=== PATIENT | female | born 2005 | race Caucasian/White ===

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

== ENCOUNTER 2025-01-01 06:14 | Emergency (ER) | payer OTHER, SELFPAY ==
--- NOTE | ~2025-01-01 | US_ITS ---
EXAMINATION: US OB <=14 wk fetus w TV, 01/01/2025 8:10 CDT HISTORY: ? complete Comparison: None Technique: Liang-scale and color Doppler images were obtained FINDINGS: Uterus anteverted 7.1 x 3.6 x 5.1 cm. Endometrium demonstrates a heterogeneous appearance, there is no intrauterine gestational sac identified, the endometrium measures 5 mm. Right ovary 1 x 2.8 x 1.1 cm, left ovary 1.7 x 2.2 x 1.2 cm. No adnexal mass, normal flow No free fluid in the pelvis IMPRESSION: No intrauterine identified. No retained products of conception Reviewed, dictated and finalized at location P. IMPRESSION: No intrauterine identified. No retained products of britt ption
--- OUTSIDE RECORDS SUMMARY | 2025-01-01 06:16 | XMS_ITS | Encounter Summary ---
Author Organization [facility] Address [address] [place] [address] Care Team Providers Care Marklogic Developer Name Role Phone Araseli Galindo MD Primary Care Provider [phone] None, Provider Primary Care Provider Lauraa jennifer Encounter Details Date Type Department Care Team (Late st Contact Info) Description 06/21/2017 Hosp Visit [facility] [place] [address] [place] [address] Yesenia Sarah, [place] [address] Social History Tobacco Use Types Packs/Day Years [...] documented as of this encounter Care Teams Marklogic Developer Relationship Specialty Start Date End Date Araseli Galindo MD [address] [place] [address] [place] [address] PCP - General PEDIATRICS 04/13/17 01/08/24 None, Provider, MD PCP - General UNKNOWN PHYSICIAN SPECIALTY 01/09/24 documented as of this encounter
--- OUTSIDE RECORDS SUMMARY | 2025-01-01 06:16 | XMS_ITS | Encounter Summary ---
Author Organization [facility] Address [address] [place] [address] Care Team Providers Care Canine Service Instructor Trainer Name Role Phone Araseli Galindo MD Primary Care Provider [phone] None, Provider Primary Care Provider Lauraa jennifer Encounter Details Date Type Department Care Team (Late st Contact Info) Description 05/19/2017 Hosp Visit [facility]patient [place] [address] [place] [address] Yesenia Sarah, [place] [address] Social History Tobacco Use Types Packs/Day Years [...] documented as of this encounter Care Teams Canine Service Instructor Trainer Relationship Specialty Start Date End Date Araseli Galindo MD [address] [place] [address] [place] [address] PCP - General PEDIATRICS 04/13/17 01/08/24 None, Provider, MD PCP - General UNKNOWN PHYSICIAN SPECIALTY 01/09/24 documented as of this encounter
--- OUTSIDE RECORDS SUMMARY | 2025-01-01 06:16 | XMS_ITS | Encounter Summary ---
Author Organization [facility] Address [address] [place] [address] Care Team Providers Care Sr. Consultant Name Role Phone Araseli Galindo MD Primary Care Provider [phone] None, Provider Primary Care Provider Lauraa jennifer Encounter Details Date Type Department Care Team (Late st Contact Info) Description 07/15/2017 Hosp Visit [facility] Outpatient [place] [address] [place] [address] Rosio Tyson, [place] [address] Social History Tobacco Use Types Packs/Day Years [...] documented as of this encounter Care Teams Sr. Consultant Relationship Specialty [place] [address] [place] [address] [place] [address] PCP - General PEDIATRICS 04/13/17 01/08/24 None, Provider, MD PCP - General UNKNOWN PHYSICIAN SPECIALTY 01/09/24 documented as of this encounter
--- OUTSIDE RECORDS SUMMARY | 2025-01-01 06:16 | XMS_ITS | Encounter Summary ---
Author Organization [facility] Address [address] [place] [address] Care Team Providers Care Supervisor Payroll Name Role Phone Araseli Galindo MD Primary Care Provider [phone] None, Provider Primary Care Provider Lauraa jennifer Encounter Details Date Type Department Care Team (Late st Contact Info) Description 05/19/2017 Hosp Visit [facility]patient [place] [address] Rosio Tyson, [place] [address] Social History Tobacco Use Types Packs/Day Years [...] as of this encounter Care Teams Supervisor Payroll Relationship Specialty Start [place] [address] [place] [address] [place] [address] PCP - General PEDIATRICS 04/13/17 01/08/24 None, Provider, MD PCP - General UNKNOWN PHYSICIAN SPECIALTY 01/09/24 documented as of this encounter
--- OUTSIDE RECORDS SUMMARY | 2025-01-01 06:16 | XMS_ITS | Clinical Summary ---
Author Organization [facility] Address [address] [place] [address] Care Team Providers Care Commercial Parts Professional Name Role Phone Unknown, Provider Primary Care Provider Unavaila ble Source Comments [facility],non-owned Affiliates and Associated Physician Practices is amultiple site organization consisting of ambulatory clinics and hospital sitesin [place], [place], [place] and [place]. This disclosure is being madepursuant to the Care Everywhere program and may not contain all information available regarding this patient. Last updated 17.[facility] Allergies Active Allergy Reactions Criticality Noted Date [...] 24 hours. 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 01/27 Assessment & Plan (01/28/2020 9:00 AM SOCIAL SCIENCE PROFESSOR): ASSESSMENT: doing well PLAN: arch supports Iliotibial band syndrome of right side 0 Assessment & Plan (01/28/2020 9:01 AM SOCIAL SCIENCE PROFESSOR): PLAN: physical therapy History of bilateral femoral [...] needed Assessment & Plan (01/28/2020 8:59 AM SOCIAL SCIENCE PROFESSOR): ASSESSMENT: doing well PLAN: observation Warts 11/19/2011 Overview (11/19/2011): Onset 2009; lesions on palmar and dorsal aspect including periungual; failed OTC zoe acid and in office cryo at PCP - met with resistance DCP 2% - applied to left 5th MCP Estimated Date of Delivery Comme nts Yes 07/25/2025 Based on last me nstrual period of 10/18/2024 Encounters Date Type Department Care Team Description 12/12/2024 9:49 AM CDT - 12/12/2024 10:42 AM CDT Emergency ER at [facility] [address] [place] [address] Discharge Disposition: Left Against Medical Advice/Discontinued Care 11/29/2024 Telephone [facility] [address] [place] [address] Devante Portillo MD Hospital Admission 11/28/2024 10:00 AM CDT - 11/28/2024 11:10 AM CDT Emergency [facility] [address] [place] [id number] Carlin Kevin, at early stage (HCC) Discharge Disposition: Home or Self Care 11/28/2024 Travel from Last 3 Months Immunizations Immunization Administration Dates Next Due DTAP HIB IPV 03/12/2010 DTaP VACCINE IM (6wk-6yrs) 08/26/2006,,2005,05/12 HEP A PEDS 2 DOSE 04/03/2007,06/13/2006 HEP B VACCINE, PED/ADOL 2005,06/15,2005,03/15 HIB VACCINE 2006, 6,2005,05/12 HIB-PRP-T 4 DOSE 2006,2005 Human Papilloma Virus Nineva lent Vaccine 05/09/2017,01/04/2017,11/02/2016 INFLUENZA A [id number] VACCINE 02/18/2009 INFLUENZA VACCINE 11/16/2012, 2,03/12/2010,02/18,03/18/2008,01/22/2008,04/03/2007 ,05/04/2006,2006 [...] drink = 0.6 oz pur e alcohol) Estimated Date of Delivery Comme nts Yes 07/25/2025 Based on last me nstrual period of 10/18/2024 Sex and Gender Information Value Date Recorded Sex Assigned at Not on file Legal Sex Female 5:44 AM SOCIAL SCIENCE PROFESSOR Gender Identity Not on file Sexual Orientation [...] Info) Description 01/02/2025 1:00 PM CDT [facility]ointment [facility] [address] [place] [id number] Ashanti Simpson MD [facility] [phone] 01/02/2025 1:45 PM CDT Hospital Encounter [facility] [address] [place] [address] Ashanti Simpson MD [facility] [address] [phone] Health Maintenance Due Date Last Done Comments HIV SCREENING 2020 CHLAMYDIA/GONORRHEA SCREENING 2021 MENINGOCOCCAL (Group B) VACCINE SHARED DECISION-MAKING (1 of 2 - Standard) 2021 HEPATITIS C SCREENING 03/10/2023 DEPRESSION SCREENING 03/28/2024 COVID-19 VACCINE ( season) 2024 INFLUENZA VACCINE (#1) 2024 7, 12/17/2013, 11/16/2012, Additional history exists OB-TDAP CURRENT 04/25/2025 11/02/2016 DTAP/TDAP/TD VACCINES (7 - Td or Tdap) [...] topic HPV VACCINE Completed 05/09/2017, 12/26, 11/02/2016 Respiratory Syncytial Virus (RSV) Vaccine Pt: or over 60 yrs (No Doses Required) Completed Medical Devices Explanted Type Area Strategic Sourcing Manager Device Identifier Shelf Expiration Date Model / Serial / Lot Pin Hlf 35mm 5mm Jtx Lng Ti Ntrd Extfix Implanted:Qty: 2 Explanted:Qty: 2 on 03/15/2017 at [facility] [employer] [id number] / / Pin Hlf 40mm 5mm Jtx Lng Ti Ntrd Extfix Explanted:Qty: 1 on 03/15/2017 at [facility] [employer] [id number] / / Gw Orth 3.2mm Thrd Pedinail Explanted:Qty: 2 on 03/15/2017 by Sudhir Marie MD at [facility] [employer] 001 / / Nail 9mm 34cm Im Fem Lt Pedinail Ped Implanted:Qty: 1 on 03/15/2017 by Sudhir Marie MD at [facility] Explanted:Qty: 1 on 09/22/2017 at [facility] Left: Leg [employer] -094 / / Nail 9mm 34cm Im Fem Rt Pedinail Ped Implanted:Qty: 1 on 03/15/2017 by Sudhir Marie MD at [facility] Explanted:Qty: 1 on 09/22/2017 at [facility] Right: Leg [employer] -[id number] / / Screw 4.5mm 50mm Fem Lck Pedinail Bone Implanted:Qty: 2 on 03/15/2017 by Sudhir Marie MD at [facility] Explanted:Qty: 2 on 09/22/2017 at [facility] [employer] -[id number] / / Screw 4.5mm 28mm Fem Lck Pedinail Bone Implanted:Qty: 1 on 03/15/2017 by Sudhir Marie MD at [facility] Explanted:Qty: 1 on 09/22/2017 at [facility] [employer] -[id number] / / Screw 4.5mm 30mm Fem Lck Pedinail Bone Implanted:Qty: 1 on 03/15/2017 by Sudhir Marie MD at [facility] Explanted:Qty: 1 on 09/22/2017 at [facility] [employer] -[id number] / / Procedures Procedure Name Priority Date/Time Associated Diagnosis Comments HCG BETA BLOOD QUANTITATIVE STAT 11/28/2024 10:15 AM CDT from Last 3 Months Results * HCG BETA BLOOD QUANTITATIVE (11/28/2024 10:15 AM CDT) Beta-hCG Total Quantitative 1,896 mIU/mL 11/28/2024 10:52 AM CDT [facility] Comment: HCG Numeric Result [...] PA-C LAB - CHEMISTRY ORDERABLES Final Result [facility] [address] [place] [address], [place] [phone] from Last 3 Months Insurance [facility] Member Subscriber Plan / Payer (Ef fective 2013-Present) Name:Lisa Solis Relation to Subscriber:Self Name:Lisa Solis Payer ID:[id number] (NAIC) Group ID:Not on file Type:Medicaid Managed Care Address: ATTN CLAIMS DEPARTMENT [address] [place] [id number] Advance Directives * Full Code (Latest Code Status on File) Date Activated Date Inactivated Comments 03/15/2017 1:14 PM 03/16/2017 5:56 PM Care Teams Commercial Parts Professional Relationship Specialty Start Date End Date Unknown, Provider PCP - General 11/02/23
--- OUTSIDE RECORDS SUMMARY | 2025-01-01 06:16 | XMS_ITS | Encounter Summary ---
Author Organization [facility] Address [address] [place] [address] Care Team Providers Care Financial Analysis Advisor Name Role Phone Araseli Galindo MD Primary Care Provider [phone] Myra Costello Primary Care Provider [phone] Mari Foley MD Primary Care Provider [phone] Unknown, Provider Primary Care Provider Unavaila ble Encounter Details Date Type Department Care Team (Late st Contact Info) Description 03/08/2014 Telephone [facility] Pediatrics - Orthopedics [address] [place] [address] Noemi Serrano LCSW Social History Tobacco Use Types Packs/Day Years Used Date Smoking Tobacco: Never Assessed Comments Unknown Sex and Gender Information Value Date Recorded Sex Assigned at Not on file Legal Sex Female 5:44 AM REGIONAL HR MANAGER Gender Identity Not on file Sexual Orientation Not on file documented as of this encounter Plan of Treatment Upcoming Encounters Date Type Department Care Team (Late st Contact Info) Description 01/02/2025 1:00 PM CDT Appointment formerly [facility] [address] [place] [phone] Ashanti Simpson MD [address] [phone] 01/02/2025 1:45 PM CDT Hospital Encounter formerly [facility] [address] [place] [address] Ashanti Simpson MD [address] [phone] documented as of this encounter Visit Diagnoses Not on filedocumented in this encounter Care Teams Financial Analysis Advisor Relationship Specialty Start Date End Date Araseli Galindo MD PCP - General Pediatrics 10/06/11 06/01/18 Myra Costello APRN-MEDICAL AND HEALTH SERVICES MANAGER [address] [place] [address] PCP - General Allergy and Immunology 06/02/18 1 Mari Foley MD [address] [place] [address] PCP - General Pediatrics 12/22/20 01/05/22 Unknown, Provider PCP - General 11/02/23 documented as of this encounter
[2025-01-01 06:31] VITALS: BP 127/81; PULSE 113; RESP 20; TEMP 36.6; O2SAT 100
[2025-01-01 07:15] LABS: Hematocrit 43.2 % (37.0-47.0); Hemoglobin 14.3 g/dL (12.0-15.0); Immature Granulocyte Percent A 0.3 % (0-0.5); Lymphocytes Absolute Auto 0.88 K/mm3 (0.9-3.2); Mean Corpuscular HGB Conc 33.1 g/dl (32-36); Mean Corpuscular Hemoglobin 30.2 pg (26-34); Mean Corpuscular Volume 91.1 fl (80-100); Nucleated Red Blood Cells Absolute Auto 0.000 K/mm3 (0.0-0.012); Nucleated Red Blood Cells Perc 0.0 % (0.0-0.2); Platelet Count Result 246 k/mm3 (150-375); Red Blood Count 4.74 M/mm3 (4.2-5.4); White Blood Count 14.4 K/mm3 (4.5-10.0)
[2025-01-01] MEDS: MORPHINE SULFATE (*CRX) 2 MG/ML INJ (07:24)
[2025-01-01 07:28] LABS: Alanine Aminotransferase 17 U/L (6-35); Albumin Level 4.3 g/dL (3.7-5.6); Alkaline Phosphatase 105 U/L (45-116); Anion Gap 12 mmol/L (4-12); Aspartate Amino Transferase 27 U/L (14-36); Bilirubin,Total 0.6 mg/dL (0.2-1.3); Blood Urea Nitrogen 5 mg/dL (8-21); Calcium 9.2 mg/dL (8.9-10.7); Carbon Dioxide 20 mmol/L (22-30); Chloride 105 mmol/L (98-107); Estimated CRCL calculation 104 ml/min; Estimated Glomerular Filt Rate > 60; Glucose 105 mg/dL (65-110); Potassium 3.5 mmol/L (3.4-5.0); Sodium 137 mmol/L (134-143); Total Protein 8.0 g/dL (6.3-8.6)
[2025-01-01 07:30] LABS: INR 0.9; Prothrombin Time 12.6 Seconds (11.1-14.7)
[2025-01-01 07:31] LABS: Partial Thromboplastin Time 29.6 Seconds (22.3-36.8)
[2025-01-01] MEDS: KETOROLAC 30 MG/ML VIAL (*BKC) IV PUSH (07:36)
[2025-01-01] MEDS: LACTATED RINGERS 1,000 ML 999 ML IV CONT (07:36)
[2025-01-01 07:44] LABS: Beta HCG Quantitative 109.61 mIU/ML
[2025-01-01 07:58] VITALS: PULSE 99; RESP 18; O2SAT 100
--- NOTE | 2025-01-01 09:45 | ED_ITS ---
HPI - Female Genitourinary General Chief complaint: Vaginal Bleeding Stated complaint: body pain, miscarriage Time Seen by Provider: 01/01/25 06:59 Source: patient Mode of arrival: ambulatory Limitations: no limitations History of Present Illness HPI Narrative: 19-year-old 2 para 0 here with a complains of having heavy vaginal bleeding, lower abdominal cramping this started few days ago. Patient states that she passed gestational sac 2 days ago still continues to have heavy bleeding. She states on the day 1 she soaked 5 diapers. Denies being lightheaded or dizzy. No history of nausea vomiting or fever. She states that she is scheduled to see Dr. Carney in this morning at 9:30 a.m. Pertinent past history: prior miscarriages Onset (ago): day(s) (4) Severity: moderate Quality of pain: cramping Consistency: constant Vaginal bleeding: moderate Exacerbating factors: none Relieving factors: none Related Data Allergies Allergy/AdvReac Type Severity Reaction Status Date / Time amoxicillin Allergy Unknown yeast Verified 12/07/24 09:55 infection clavulanic acid Allergy Unknown yeast Verified 12/07/24 09:55 infection Review of Systems 2 Review of Systems: All systems reviewed & are unremarkable except as noted in HPI and below Constitutional: Constitutional: Reports no additional constitutional complaints Eyes: Eyes: Reports no additional eye complaints ENT: Reports system reviewed and no additional complaints, except as documented Cardiovascular: Cardiovascular: Reports no additional cardiovascular complaints Respiratory: Respiratory: Reports no additional respiratory complaints Gastrointestinal: Gastrointestinal: Reports as per HPI Genitourinary: Genitourinary: Reports as per HPI Musculoskeletal: Musculoskeletal: Reports no additional musculoskeletal complaints Integumentary/Breasts: Skin/Breast: Reports system reviewed and no additional complaints, except as docu PMFSH Past Medical History Medical History Seizure Vaginal discharge Surveillance for Depo-Provera contraception Initiation of Depo Provera No significant past medical history Surgical History Surgical History No significant past surgical history Social History Social History Smoking status: Never smoker Alcohol intake: never Substance use: never Substance use type: does not use Lack of Transportation: No Lack of Food: Never True Current Housing: I Have Housing Concerned About Future Housing: No Difficulty Paying Gas/Electric Bills: No Difficulty Paying for Meds: No Currently Unemployed: No Education: High School Diploma/GED Difficulty w/ Childcare or Family Care: No Living arrangements: with family Occupation/Education: student 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 HEAD: Normocephalic, atraumatic. EYES: PERRLA and EOMI. ENT: Nares clear, no rhinorrhea or epistaxis. Mucous membranes moist. NECK: Supple. CHEST: Clear to auscultation. No respiratory distress. HEART: Regular rate and rhythm. No murmur heard. Normal peripheral pulses. ABDOMEN: Soft, nontender, nondistended, normal active bowel sounds. EXTREMITIES: Normal range of motion. No edema. SKIN: Warm, dry, no rash. NEURO: No focal deficits. Alert and oriented x3. PSYCH: Normal mood and affect. Course Course Emergency Course: Patient was given IV morphine and Toradol for pain control did obtain lab work which seemed to be unremarkable her repeat ultrasound shows no intra uterine of products of gestation. I did discuss with the or OBGYN will follow up in office. Patient feels comfortable going home. Vital Signs Vital signs: Vital Signs Temperature 36.6 C 01/01/25 06:31 Pulse Rate 113 H 01/01/25 06:31 Respiratory Rate 20 01/01/25 06:31 Blood Pressure 127/81 01/01/25 06:31 Pulse Oximetry 100 01/01/25 06:31 Temperature 36.6 C 01/01/25 06:31 Pulse Rate 99 01/01/25 07:58 Respiratory Rate 18 01/01/25 07:58 Blood Pressure 127/81 01/01/25 06:31 Pulse Oximetry 100 01/01/25 07:58 MDM - Female Genitourinary Lab Data Attestation: I reviewed the patient's lab results. 01/01/25 07:00 01/01/25 07:00 Labs: Lab Results 01/01/25 Range/Units 07:00 WBC 14.4 H (4.5-10.0) K/mm3 RBC 4.74 (4.2-5.4) M/mm3 Hgb 14.3 (12.0-15.0) g/dL Hct 43.2 (37.0-47.0) % MCV 91.1 (80-100) fl MCH 30.2 (26-34) pg MCHC 33.1 (32-36) g/dl RDW 12.8 (11.5-14.5) % Plt Count 246 (150-375) k/mm3 MPV 10.3 (7.4-10.4) fl Immature Gran % (Auto) 0.3 (0-0.5) % Neut % (Auto) 88.0 H (45.5-73.1) % Lymph % (Auto) 6.1 L (18.3-44.2) % [place] % (Auto) 5.3 (2.6-8.5) % Eos % (Auto) 0.1 (0-4.4) % Baso % (Auto) 0.2 (0.2-1.2) % Lymph # (Auto) 0.88 L (0.9-3.2) K/mm3 [place] # (Auto) 0.8 H (0.1-0.6) K/mm3 Eos # (Auto) 0.0 (0-0.3) K/mm3 Baso # (Auto) 0.0 (0.0-0.1) K/mm3 Abs Immat Gran (auto) 0.05 H (0.00-0.031) K/mm3 Absolute Neuts (auto) 12.7 H (1.3-6.7) K/mm3 Absolute Nucleated RBC 0.000 (0.0-0.012) K/mm3 Nucleated RBC % 0.0 (0.0-0.2) % PT 12.6 (11.1-14.7) Seconds INR 0.9 APTT 29.6 (22.3-36.8) Seconds Sodium 137 (134-143) mmol/L Potassium 3.5 (3.4-5.0) mmol/L Chloride 105 (98-107) mmol/L Carbon Dioxide 20 L (22-30) mmol/L Anion Gap 12 (4-12) mmol/L BUN 5 L (8-21) mg/dL Creatinine 0.73 (0.7-1.0) mg/dL Estim Creat Clear Calc 104 ml/min Estimated GFR > 60 (59 - ) Glucose 105 (65-110) mg/dL Calcium 9.2 (8.9-10.7) mg/dL Total Bilirubin 0.6 (0.2-1.3) mg/dL AST 27 (14-36) U/L ALT 17 (6-35) U/L Alkaline Phosphatase 105 (45-116) U/L Total Protein 8.0 (6.3-8.6) g/dL Albumin 4.3 (3.7-5.6) g/dL Beta HCG, Quant 109.61 mIU/ML Blood Type O Positive Antibody Screen Negative Doses of RhIg Required 0 Imaging Data Radiologist's impression: ITS Impressions Obstetrics Ultrasound 01/01/25 08:54 IMPRESSION: No intrauterine identified. No retained products of conception Discharge Plan Discharge Clinical Impression: Complete Patient Disposition: Home Condition: Stable Instructions: Miscarriage (ED) Additional Instructions: drink more fluids , follow with your OB doctor Patient Language: Lithuanian Prescriptions: New ibuprofen 600 mg tablet 600 mg PO Q6H PRN (Reason: pain) Qty: 30 0RF No Action valacyclovir 1 gram tablet 1,000 mg PO Q12H Qty: 14 0RF levetiracetam 500 mg tablet 500 mg PO BID Qty: 60 0RF nitrofurantoin monohyd/m-cryst [Macrobid] 100 mg capsule 100 mg PO Q12H 5 Days Qty: 10 0RF Rx Instructions: must administer with a meal/food Follow-up/Referrals: UNKNOWN,DOCTOR [Primary Care Provider] Ilir Carney MD [Physician, GRANTS AND CONTRACTS ASSISTANT] Time of Disposition: 09:49
[2025-01-01 10:48] VITALS: BP 121/68; PULSE 70; RESP 18; O2SAT 100
== END 2025-01-01 09:58 | disposition home or self-care (01) ==
PROVIDERS: Emergency Medicine; Emergency Provider Family Medicine
DX: O03.9 Complete or unspecified spontaneous abortion without complication (principal)
CPT/HCPCS: 36415; 76801; 76817; 80053; 84702; 85025; 85461; 85610; 85730; 86850; 86900; 86901; 96361; 96374; 96375; 99284; J1885; J2270; J7120

== ENCOUNTER 2025-01-06 00:11 | Emergency (ER) | payer OTHER, SELFPAY ==
[2025-01-06] VITALS (17 sets, daily range): BP systolic 108–114; BP diastolic 63–86; PULSE 60–90; RESP 10–25; TEMP 37.5; O2SAT 98–100
--- NOTE | ~2025-01-06 | CT_ITS ---
CT abdomen pelvis w con Clinical History: AP/N/V . Comparison: None Technique: Axial images lung bases to symphysis pubis 100 mL Omnipaque 350 Coronal, sagittal reformats CT images acquired with automatic exposure control for dose reduction DLP: 320 mGy-cm Findings: Lung bases: Small left pleural effusion. Visualized heart and pericardium: Unremarkable. Liver: Enlarged. Steatosis. Gallbladder: Unremarkable. Spleen: Enlarged. Pancreas: Unremarkable. Adrenal glands: Unremarkable. Kidneys: Right kidney- No hydronephrosis. No renal stones. Possible striated nephrogram. Left kidney- No hydronephrosis. No renal stones. Striated nephrogram. Distal esophagus/stomach: Unremarkable. Small bowel loops: Dilated loops of central abdomen with air-fluid levels. Colon: Normal caliber and wall thickness. Normal RLQ appendix. Nodes: No enlarged nodes. Peritoneum: No ascites. No free air. Urinary bladder: Unremarkable. Uterus: Unremarkable. Adnexa: No masses. Bones: No acute bony abnormality. Soft tissues: Unremarkable. Aorta: No aneurysm or dissection. IVC: Unremarkable. Main portal vein/SMV/splenic vein: Patent. IMPRESSION: 1. Mild enteritis, but early small bowel obstruction not excluded. 2. Worrisome for left kidney pyelonephritis. Less severe right side also possible. Alternatively, contrast timing. 3. Small left pleural effusion. 4. Hepatosplenomegaly. Reviewed, dictated and finalized at location R. IMPRESSION: 1. Mild enteritis, but early small bowel obstruction not excluded. 2. Worrisome for left kidney pyelonephritis. Less severe right side also possi ble. Alternatively, contrast timing. 3. Small left pleural effusion. 4. Hepatosplenomegaly.
[2025-01-06 01:01] LABS: Hematocrit 36.8 % (37.0-47.0); Hemoglobin 12.8 g/dL (12.0-15.0); Immature Granulocyte Percent A 0.5 % (0-0.5); Lymphocytes Absolute Auto 0.84 K/mm3 (0.9-3.2); Mean Corpuscular HGB Conc 34.8 g/dl (32-36); Mean Corpuscular Hemoglobin 29.9 pg (26-34); Mean Corpuscular Volume 86.0 fl (80-100); Nucleated Red Blood Cells Absolute Auto 0.000 K/mm3 (0.0-0.012); Nucleated Red Blood Cells Perc 0.0 % (0.0-0.2); Platelet Count Result 284 k/mm3 (150-375); Red Blood Count 4.28 M/mm3 (4.2-5.4); White Blood Count 18.3 K/mm3 (4.5-10.0)
[2025-01-06 01:04] LABS: BEDSIDEPREGUCG Positive (Negative)
[2025-01-06 01:07] LABS: Add Urine Microscopic? YES; Appearance Urine Cloudy (Clear); Glucose Urine UA Negative (Negative); Leukocyte Esterase Ur 2+ LEU/UL (Negative); Nitrate Urine Positive (Negative); Non Pathogenic Casts 0-2; Specific Grav Ur 1.013 (1.001-1.035)
--- NOTE | 2025-01-06 01:07 | ED.GENADULT ---
HPI - General Adult General Chief complaint: Abdominal Pain Stated complaint: VOMITING/ABDOMINAL PAIN Time Seen by Provider: 01/06/25 00:57 Source: patient and family Mode of arrival: ambulatory Limitations: no limitations History of Present Illness HPI narrative: Patient is a 19-year-old female presents to the emergency department with multiple complaints. Patient notes that she feels pain all over her body ever since she had a miscarriage which was 1.5 weeks ago, passed and anteriorly, had an ultrasound done about 1 week ago, has told that there was no sac anymore but still some retained products and was seen here about 5 days ago was told that the ultrasound looked good. Patient notes that she still passing intermittently some clots of blood though much decreased and some malodorous discharge and she feels like her pain allover her body is secondary to her arthritis but does admit to persistent pain in her suprapubic region with a miscarriage as seems to be fine going away. Patient admits to nausea and vomiting without any ability to keep anything down over the past 1 week. Patient denies any runny nose, congestion, cough, difficulty breathing, chest pain, diarrhea. Patient denies any known fevers. Patient notes that she was supposed to follow up with [facility] here on but had to reschedule the appointment. Patient admits to urinary frequency and urgency but denies dysuria. Patient reports this was her 3rd misscarriage. Related Data Allergies Allergy/AdvReac Type Severity Reaction Status Date / Time amoxicillin Allergy Unknown yeast Verified 01/06/25 00:27 infection clavulanic acid Allergy Unknown yeast Verified 01/06/25 00:27 infection Review of Systems Review of Systems: A 10 system review of systems was completed on the patient and is negative except for what is stated in the HPI. Nursing and ancillary documentation was reviewed. [facility] Past Medical History Medical History Seizure Vaginal discharge Surveillance for Depo-Provera contraception Initiation of Depo Provera No significant past medical history Surgical History Surgical History No significant past surgical history Social History Social History Smoking status: Never smoker Alcohol intake: never Substance use: never Substance use type: does not use Lack of Transportation: No Lack of Food: Never True Current Housing: I Have Housing Concerned About Future Housing: No Difficulty Paying Gas/Electric Bills: No Difficulty Paying for Meds: No Currently Unemployed: No Education: High School Diploma/GED Difficulty w/ Childcare or Family Care: No Living arrangements: with family Occupation/Education: student 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 Well nourished. HENMT: Head is normocephalic and atraumatic. Dry mucous membranes. No posterior oropharynx erythema. EYES: No scleral icterus. No conjunctival injection or pallor. PERRL. NECK: No meningeal signs. RESP: Able to speak in full sentences. Normal respiratory effort. CTAB. CARDIO: Regular rate. Regular rhythm. 2+ DP and radial pulses bilaterally. GI: Nondistended. Mild tenderness to palpation in the suprapubic region, no rebound or guarding or rigidity. Soft. : Mild left CVA tenderness to palpation. SKIN: No rashes or lesions noted on exposed skin. NEURO: Oriented x3. Moves all extremities. EXTREM/MSK/BACK: No pedal edema. PSYCH: Normal affect. Course Vital Signs Vital signs: Vital Signs Temperature 99.5 F 01/06/25 00:20 Pulse Rate 87 01/06/25 00:20 Respiratory Rate 16 01/06/25 00:20 Blood Pressure 108/65 01/06/25 00:20 Pulse Oximetry 100 01/06/25 00:20 Oxygen Delivery Room Air 01/06/25 00:20 Temperature 99.5 F 01/06/25 00:20 Pulse Rate 60 01/06/25 03:45 Respiratory Rate 14 01/06/25 03:45 Blood Pressure 114/69 01/06/25 03:35 Pulse Oximetry 100 01/06/25 03:45 Oxygen Delivery Room Air 01/06/25 00:20 Medical Decision Making [facility] Narrative Medical decision making narrative: Patient presents with the above complaint. Initial vitals are remarkable for no significant abnormalities. Physical examination as noted above. Differential diagnosis includes was not limited to: UTI, metabolic derangement, electrolyte derangement, gastritis, retained products of conception, endometritis, pelvic inflammatory disease, , viral syndrome. Plan discussed: Laboratory analysis, IV fluids, Zofran, morphine, continues cardiac monitoring, continuous pulse oximetry, review medical records, software security architect consultation. Patient had a ultrasound done on 01/01/2025 revealing no intrauterine identified. No retained products of conception. Endometrium demonstrated a heterogenous appearance. CBC reveals a white blood cell count of 18.3. Comprehensive metabolic panel reveals a potassium of 2.7, glucose of 150, AST of 62, ALT of 101, alkaline phosphatase of 158. Lipase is 55. Urinalysis reveals cloudy appearance, 1+ ketones, positive nitrate, 2+ leukocyte esterase, 51-100 wbc's, 4+ bacteria. Urine hCG testing is positive. Quantitative hCG ordered. Phosphorus is 1.2. Lactic acid is 1.2. Magnesium is 2.0. COVID and influenza and RSV testing are negative. UDS is positive for cannabinoids. I spoke with OB Gyne on-call Dr. Kowalski who agrees with plan of care including CT abdomen pelvis, treat urinary tract infection with Rocephin, GCT urine testing, repeat LFTs, electrolyte repletion, IV fluids, follow-up with OBGYN in about 2 days, does not feel any pelvic examination would be of benefit at this point in time. Trichomonas vaginalis is not detected. Free T4 is 2.03. Total T3 is 1.41. Chlamydia trich notice not detected. Necessary gonorrhea not detected. CT of the abdomen pelvis reveals small left-sided pleural effusion. Hepatosplenomegaly and hepatic steatosis. Question of a striated left renal nephrogram which may represent underlying pyelonephritis with a hypodense lesions seen at the superior medial pole of the kidney. Correlate urinalysis. Otherwise no acute intra-abdominal or pelvic findings. Repeat CMP shows a potassium of 3.8, AST of 37, ALT of 69. Patient was reassessed at the bedside. Patient appears in no acute distress. Patient is tolerating oral intake. Counseled patient regarding diagnostic results and potential diagnosis. Anticipatory guidance provided. Patient instructed to follow up with OBGYN in the next 2-3 days, gastroenterology in the next 1 week, PCP in the next 2-3 days. Patient counseled on: false reassurance from an emergency department evaluation; no current evidence of a medical emergency; return immediately for any new, recurrent, worsening, concerning, or refractory symptoms. Patient prescribed Motrin, Zofran, [place], Bactrim. Prescription sent to preferred pharmacy. Medications discussed with patient. Additional verbal and printed discharge instructions were given and discussed with the patient. Patient verbally acknowledges understanding of condition and discharge instructions. All questions were answered to the patient's satisfaction. Patient is in agreement with the plan of care. The patient is stable for discharge and was discharged without incident. Medical Records Medical records reviewed: Yes I reviewed the external patient's medical records. Vital Signs Vital Signs: Vital Signs Temperature 99.5 F 01/06/25 00:20 Pulse Rate 87 01/06/25 00:20 Respiratory Rate 16 01/06/25 00:20 Blood Pressure 108/65 01/06/25 00:20 Pulse Oximetry 100 01/06/25 00:20 Oxygen Delivery Room Air 01/06/25 00:20 Temperature 99.5 F 01/06/25 00:20 Pulse Rate 60 01/06/25 03:45 Respiratory Rate 14 01/06/25 03:45 Blood Pressure 114/69 01/06/25 03:35 Pulse Oximetry 100 01/06/25 03:45 Oxygen Delivery Room Air 01/06/25 00:20 Lab Data 01/06/25 00:53 01/06/25 00:53 Labs: Lab Results 01/06/25 01/06/25 01/06/25 Range/Units 00:52 00:53 01:02 WBC 18.3 H (4.5-10.0) K/mm3 RBC 4.28 (4.2-5.4) M/mm3 Hgb 12.8 (12.0-15.0) g/dL Hct 36.8 L (37.0-47.0) % MCV 86.0 D (80-100) fl MCH 29.9 (26-34) pg MCHC 34.8 (32-36) g/dl RDW 12.4 (11.5-14.5) % Plt Count 284 (150-375) k/mm3 MPV 10.6 H (7.4-10.4) fl Immature Gran % (Auto) 0.5 (0-0.5) % Neut % (Auto) 87.7 H (45.5-73.1) % Lymph % (Auto) 4.6 L (18.3-44.2) % Beadle % (Auto) 6.9 (2.6-8.5) % Eos % (Auto) 0.1 (0-4.4) % Baso % (Auto) 0.2 (0.2-1.2) % Lymph # (Auto) 0.84 L (0.9-3.2) K/mm3 Beadle # (Auto) 1.3 H (0.1-0.6) K/mm3 Eos # (Auto) 0.0 (0-0.3) K/mm3 Baso # (Auto) 0.0 (0.0-0.1) K/mm3 Abs Immat Gran (auto) 0.09 H (0.00-0.031) K/mm3 Absolute Neuts (auto) 16.1 H (1.3-6.7) K/mm3 Absolute Nucleated RBC 0.000 (0.0-0.012) K/mm3 Nucleated RBC % 0.0 (0.0-0.2) % PT 13.9 (11.1-14.7) Seconds INR 1.1 APTT 31.9 (22.3-36.8) Seconds Sodium 135 (134-143) mmol/L Potassium 2.7 L* (3.4-5.0) mmol/L Chloride 99 (98-107) mmol/L Carbon Dioxide 25 (22-30) mmol/L Anion Gap 11 (4-12) mmol/L BUN 7 L (8-21) mg/dL Creatinine 0.69 L (0.7-1.0) mg/dL Estim Creat Clear Calc 93 ml/min Estimated GFR > 60 (59 - ) Glucose 150 H (65-110) mg/dL Lactic Acid (0.7-2.0) mmol/L Calcium 9.0 (8.9-10.7) mg/dL Phosphorus 1.2 L (2.5-4.5) mg/dL Magnesium 2.0 (1.6-2.3) mg/dL Total Bilirubin 0.9 (0.2-1.3) mg/dL AST 62 H (14-36) U/L ALT 101 H (6-35) U/L Alkaline Phosphatase 158 H (45-116) U/L Total Creatine Kinase 67 (30-135) U/L C-Reactive Protein 15.5 H (<1.0) mg/dL Total Protein 7.5 (6.3-8.6) g/dL Albumin 3.6 L (3.7-5.6) g/dL Lipase 55 (23-300) U/L TSH (Reflex) 0.399 L (0.465-4.68) uIU/mL Free T4 2.03 (0.78-2.19) ng/dL Total T3 1.41 (0.82-1.58) NG/ML Beta HCG, Quant 15.92 mIU/ML Urine Color Yellow (Yellow) Urine Appearance Cloudy H (Clear) Urine pH 5.5 (5.0-9.0) Ur Specific Harbinger 1.013 (1.001-1.035) Urine Protein Trace (Negative) mg/dL Urine Glucose (UA) Negative (Negative) mg/dL Urine Ketones 1+ H (Negative) mg/dL Ur Blood (Man) Negative (Negative) Urine Nitrate Positive H (Negative) Urine Bilirubin Negative (Negative) Urine Urobilinogen 0.2 (<2.0) mg/dL Leukocyte Esterase Rfl 2+ H (Negative) MANA/UL Urine RBC 0-2 (0-2) /hpf Urine WBC 51-100 H (0-3) /hpf Ur Squamous Epith Cells Occasional (Few) /hpf Urine Bacteria 4+ H /hpf Urine Casts 0-2 POC Urine HCG, Qual Positive (Negative) Urine Opiates Screen Negative (Negative) Urine Methadone Screen Negative (Negative) Ur Barbiturates Screen Negative (Negative) Ur Phencyclidine Scrn Negative (Negative) Ur Amphetamine Screen Negative (Negative) U Benzodiazepines Scrn Negative (Negative) Urine Cocaine Screen Negative (Negative) U Cannabinoids Screen Positive A (Negative) C. trachomatis (PCR) Not detected (NOT DETECTE) Influenza A (RT-PCR) (Negative) Influenza B (RT-PCR) (Negative) N. gonorrhoeae (PCR) Not detected (NOT DETECTE) RSV (RT-PCR) (Negative) SARS-CoV-2 RNA (RT-PCR) (Negative) T. vaginalis (PCR) Not detected (NOT DETECTE) 01/06/25 Range/Units 01:30 WBC (4.5-10.0) K/mm3 RBC (4.2-5.4) M/mm3 Hgb (12.0-15.0) g/dL Hct (37.0-47.0) % MCV (80-100) fl MCH (26-34) pg MCHC (32-36) g/dl RDW (11.5-14.5) % Plt Count (150-375) k/mm3 MPV (7.4-10.4) fl Immature Gran % (Auto) (0-0.5) % Neut % (Auto) (45.5-73.1) % Lymph % (Auto) (18.3-44.2) % Beadle % (Auto) (2.6-8.5) % Eos % (Auto) (0-4.4) % Baso % (Auto) (0.2-1.2) % Lymph # (Auto) (0.9-3.2) K/mm3 Beadle # (Auto) (0.1-0.6) K/mm3 Eos # (Auto) (0-0.3) K/mm3 Baso # (Auto) (0.0-0.1) K/mm3 Abs Immat Gran (auto) (0.00-0.031) K/mm3 Absolute Neuts (auto) (1.3-6.7) K/mm3 Absolute Nucleated RBC (0.0-0.012) K/mm3 Nucleated RBC % (0.0-0.2) % PT (11.1-14.7) Seconds INR APTT (22.3-36.8) Seconds Sodium (134-143) mmol/L Potassium (3.4-5.0) mmol/L Chloride (98-107) mmol/L Carbon Dioxide (22-30) mmol/L Anion Gap (4-12) mmol/L BUN (8-21) mg/dL Creatinine (0.7-1.0) mg/dL Estim Creat Clear Calc ml/min Estimated GFR (59 - ) Glucose (65-110) mg/dL Lactic Acid 1.2 (0.7-2.0) mmol/L Calcium (8.9-10.7) mg/dL Phosphorus (2.5-4.5) mg/dL Magnesium (1.6-2.3) mg/dL Total Bilirubin (0.2-1.3) mg/dL AST (14-36) U/L ALT (6-35) U/L Alkaline Phosphatase (45-116) U/L Total Creatine Kinase (30-135) U/L C-Reactive Protein (<1.0) mg/dL Total Protein (6.3-8.6) g/dL Albumin (3.7-5.6) g/dL Lipase (23-300) U/L TSH (Reflex) (0.465-4.68) uIU/mL Free T4 (0.78-2.19) ng/dL Total T3 (0.82-1.58) NG/ML Beta HCG, Quant mIU/ML Urine Color (Yellow) Urine Appearance (Clear) Urine pH (5.0-9.0) Ur Specific Harbinger (1.001-1.035) Urine Protein (Negative) mg/dL Urine Glucose (UA) (Negative) mg/dL Urine Ketones (Negative) mg/dL Ur Blood (Man) (Negative) Urine Nitrate (Negative) Urine Bilirubin (Negative) Urine Urobilinogen (<2.0) mg/dL Leukocyte Esterase Rfl (Negative) MANA/UL Urine RBC (0-2) /hpf Urine WBC (0-3) /hpf Ur Squamous Epith Cells (Few) /hpf Urine Bacteria /hpf Urine Casts POC Urine HCG, Qual (Negative) Urine Opiates Screen (Negative) Urine Methadone Screen (Negative) Ur Barbiturates Screen (Negative) Ur Phencyclidine Scrn (Negative) Ur Amphetamine Screen (Negative) U Benzodiazepines Scrn (Negative) Urine Cocaine Screen (Negative) U Cannabinoids Screen (Negative) C. trachomatis (PCR) (NOT DETECTE) Influenza A (RT-PCR) Negative (Negative) Influenza B (RT-PCR) Negative (Negative) N. gonorrhoeae (PCR) (NOT DETECTE) RSV (RT-PCR) Negative (Negative) SARS-CoV-2 RNA (RT-PCR) Negative (Negative) T. vaginalis (PCR) (NOT DETECTE) Discharge Plan Discharge Clinical Impression: Pyelonephritis, Myalgia, Acute hypokalemia, Hypophosphatemia UTI (urinary tract infection) Qualifiers: Urinary tract infection type: acute pyelonephritis Qualified Code(s): N10 - Acute pyelonephritis Patient Disposition: Home Condition: Improved Instructions: Antibiotic Form, Urinary Tract Infection in Women (ED), Hypokalemia (ED), Kidney Infection (ED), Non-Alcoholic Fatty Liver Disease (ED), Abdominal Pain (ED), Hypophosphatemia (ED), Transaminitis (ED) Additional Instructions: Follow-up with OBGYN in the next 48-72 hours for reassessment and repeat HCG testing, take the antibiotics as prescribed to completion, rest and stay well hydrated, take the Zofran as needed for nausea, take the Motrin and [place] as needed for pain. The results of urine culture should return in the next 2-3 days, fever not getting symptomatic improvement from your UTI symptoms the culture will be able to help guide antibiotic adjustment and you can follow up with the primary care doctor and/or OBGYN and/or return to the emergency department this. Your liver enzymes were elevated today and on repeat there were improved in your imaging shows the head of hepatosplenomegaly and hepatic steatosis. I provided the with follow-up to Gastroenterology which I recommend he do so in the next 1 week and I would also advise you to follow-up with the primary care physician in the next 1 week further monitoring of this. Return immediately to the emergency department for any new or concerning symptoms especially inability keep anything down by mouth, new or concerning or worsening or persistent and recurrent abdominal pain, fever, chest pain, difficulty breathing, or any emergent concerns for life, limb eyesight. Patient Language: Yoruba Prescriptions: New sulfamethoxazole-trimethoprim [Bactrim DS] 800-160 mg tablet 1 tablet PO Q12H 10 Days Qty: 20 0RF ibuprofen 400 mg tablet 400 mg PO Q6H PRN (Reason: fever or pain) Qty: 30 0RF ondansetron 4 mg tablet,disintegrating 4 mg PO Q8H PRN (Reason: nausea and vomiting) Qty: 14 0RF hydrocodone-acetaminophen 5-325 mg tablet 1 tablet PO Q6H MDD 4 tabs PRN (Reason: pain) 3 Days Qty: 12 0RF No Action valacyclovir 1 gram tablet 1,000 mg PO Q12H Qty: 14 0RF levetiracetam 500 mg tablet 500 mg PO BID Qty: 60 0RF nitrofurantoin monohyd/m-cryst [Macrobid] 100 mg capsule 100 mg PO Q12H 5 Days Qty: 10 0RF Rx Instructions: must administer with a meal/food ibuprofen 600 mg tablet 600 mg PO Q6H PRN (Reason: pain) Qty: 30 0RF Follow-up/Referrals: Reed Ngo MD [Physician, Gastroenterology] - 1 Week Reza Moya MD [Physician, Family Practice] - 3 Days UNKNOWN,DOCTOR [Non-Staff] Ilir Carney MD [Physician, INSURANCE ADJUSTER] - 2 Days Time of Disposition: 05:58
[2025-01-06 01:15] LABS: Alanine Aminotransferase 101 U/L (6-35); Albumin Level 3.6 g/dL (3.7-5.6); Alkaline Phosphatase 158 U/L (45-116); Anion Gap 11 mmol/L (4-12); Aspartate Amino Transferase 62 U/L (14-36); Bilirubin,Total 0.9 mg/dL (0.2-1.3); Blood Urea Nitrogen 7 mg/dL (8-21); Calcium 9.0 mg/dL (8.9-10.7); Carbon Dioxide 25 mmol/L (22-30); Chloride 99 mmol/L (98-107); Estimated CRCL calculation 93 ml/min; Estimated Glomerular Filt Rate > 60; Glucose 150 mg/dL (65-110); Lipase 55 U/L (23-300); Potassium 2.7 mmol/L (3.4-5.0); Sodium 135 mmol/L (134-143); Total Protein 7.5 g/dL (6.3-8.6)
[2025-01-06 01:29] LABS: INR 1.1; Partial Thromboplastin Time 31.9 Seconds (22.3-36.8); Prothrombin Time 13.9 Seconds (11.1-14.7)
[2025-01-06] MEDS: MORPHINE SULFATE (*CRX) 4 MG/ML INJ IV PUSH (01:31)
[2025-01-06] MEDS: SODIUM CHLORIDE 0.9% IV 1,000 ML 999 ML IV CONT ×2 (01:31→03:23)
[2025-01-06] MEDS: ONDANSETRON INJ 4 MG/2 ML VIAL IV PUSH (01:31)
[2025-01-06] MEDS: KCL 20 MEQ/SW 100 ML 100 ML 50 MEQ IVPB (01:37)
[2025-01-06 01:42] LABS: Beta HCG Quantitative 15.92 mIU/ML
[2025-01-06 02:14] LABS: Influenza A QL RT-PCR Negative (Negative); Influenza B QL RT-PCR Negative (Negative); RSV RNA, RT-PCR Negative (Negative); SARS-CoV-2 RNA PCR Negative (Negative)
[2025-01-06 02:22] LABS: Magnesium 2.0 mg/dL (1.6-2.3)
[2025-01-06] MEDS: KETOROLAC 30 MG/ML VIAL (*BKC) IV PUSH (02:31)
[2025-01-06 02:41] LABS: Cannabinoid Screen Urine Positive (Negative)
[2025-01-06 02:56] LABS: Thyroid Stimulating Hormone Reflex 0.399 uIU/mL (0.465-4.68)
--- NOTE | 2025-01-06 03:02 | PC.NURSE ---
Pt becoming extremely hostile with this RN stating I don't know what fucking kind of weak ass pain medicine you're giving me but this shit ain't working. This RN explained that pt had Morphine, which is a narcotic, and Toradol, which is an anti-inflammatory. Pt states that she is going to leave after 3 hours, if there is no results. This RN explained that pt has a severe infection and could d/t the infection worsening. Pt continues to curse at this RN and said I just want to go do the fucking cat scan.
[2025-01-06 03:07] LABS: Creatine Kinase 67 U/L (30-135)
[2025-01-06 03:17] LABS: CRP 15.5 mg/dL (<1.0)
[2025-01-06] MEDS: HYDROmorphone HCL INJ (*CRX) 1 MG/ML SYR 0.5 MG IV PUSH (03:20)
[2025-01-06] MEDS: POTASSIUM CHLORIDE 20 MEQ ER TABLET 40 MEQ PO (03:20)
[2025-01-06 03:22] LABS: Free T4 Free Thyroxine Reflex 2.03 ng/dL (0.78-2.19)
[2025-01-06 03:34] LABS: Trichomonas Vag PCR NOT DETECTED (NOT DETECTE)
[2025-01-06] MEDS: cefTRIAXone 2 GM in SODIUM CHLORIDE 0.9% IV 100 ML 200 ML IVPB (03:36)
[2025-01-06 04:05] LABS: Total Triiodothyronine (T3) 1.41 NG/ML (0.82-1.58)
[2025-01-06 05:46] LABS: Alanine Aminotransferase 69 U/L (6-35); Albumin Level 2.8 g/dL (3.7-5.6); Alkaline Phosphatase 116 U/L (45-116); Anion Gap 7 mmol/L (4-12); Aspartate Amino Transferase 37 U/L (14-36); Bilirubin,Total 0.3 mg/dL (0.2-1.3); Blood Urea Nitrogen 4 mg/dL (8-21); Calcium 7.2 mg/dL (8.9-10.7); Carbon Dioxide 23 mmol/L (22-30); Chloride 105 mmol/L (98-107); Estimated CRCL calculation 108 ml/min; Estimated Glomerular Filt Rate > 60; Glucose 124 mg/dL (65-110); Potassium 3.8 mmol/L (3.4-5.0); Sodium 135 mmol/L (134-143); Total Protein 5.9 g/dL (6.3-8.6)
--- NOTE | 2025-01-07 16:57 | PC.NURSE ---
spoke to pt related to positive blood cx pt to return to ED 01-08-25 as she has no PCP
== END 2025-01-06 06:18 | disposition home or self-care (01) ==
PROVIDERS: Registered Nurse; Emergency Provider Student in an Organized Health Care Education/Training Program
DX: N10 Acute pyelonephritis (principal); E83.39 Other disorders of phosphorus metabolism; E87.6 Hypokalemia; M79.10 Myalgia, unspecified site; Z20.822 Contact with and (suspected) exposure to COVID-19; G40.909 Epilepsy, unspecified, not intractable, without status epilepticus; M19.90 Unspecified osteoarthritis, unspecified site
CPT/HCPCS: 36415; 74177; 80053; 80307; 81001; 81025; 82550; 83605; 83690; 83735; 84100; 84439; 84443; 84480; 84702; 85025; 85610; 85730; 86140; 87040; 87086; 87186; 87491; 87591; 87637; 87661; 96361; 96365; 96366; 96367; 96375; 99284; A9270; J0696; J1171; J1885; J2270; J2405; J3480; J7030; Q9967

== ENCOUNTER 2025-02-07 10:08 | Emergency (ER) | payer SELFPAY ==
--- NOTE | ~2025-02-07 | XR_ITS ---
EXAM/PROCEDURE: XR chest 2V HISTORY: Seizure COMPARISON: None available. TECHNIQUE: Two view(s) of the chest. FINDINGS: LUNGS: Clear of acute processes. PLEURAL SPACES: Clear. No evidence of fluid or pneumothorax. HEART/ MEDIASTINUM: Normal in appearance. SOFT TISSUES: No significant findings. BONES: No acute osseous abnormality. IMPRESSION: No acute findings. Reviewed, dictated and finalized at location A. MANAGEMENT SPECIALIST IMPRESSION: No acute findings.
[2025-02-07 10:30] VITALS: BP 132/82; PULSE 76; PULSE 80; RESP 19; TEMP 36.6; O2SAT 99
[2025-02-07 11:52] VITALS: BP 122/74; PULSE 61; RESP 17; O2SAT 99
[2025-02-07 11:59] LABS: Hematocrit 39.0 % (37.0-47.0); Hemoglobin 13.0 g/dL (12.0-15.0); Immature Granulocyte Percent A 0.4 % (0-0.5); Lymphocytes Absolute Auto 1.18 K/mm3 (0.9-3.2); Mean Corpuscular HGB Conc 33.3 g/dl (32-36); Mean Corpuscular Hemoglobin 30.7 pg (26-34); Mean Corpuscular Volume 92.0 fl (80-100); Nucleated Red Blood Cells Absolute Auto 0.000 K/mm3 (0.0-0.012); Nucleated Red Blood Cells Perc 0.0 % (0.0-0.2); Platelet Count Result 301 k/mm3 (150-375); Red Blood Count 4.24 M/mm3 (4.2-5.4); White Blood Count 16.2 K/mm3 (4.5-10.0)
--- NOTE | 2025-02-07 12:07 | PC.NURSE ---
pt is refusing to give urine sample at this time.
[2025-02-07 12:24] LABS: Alanine Aminotransferase 13 U/L (6-35); Albumin Level 4.1 g/dL (3.7-5.6); Alkaline Phosphatase 96 U/L (45-116); Anion Gap 7 mmol/L (4-12); Aspartate Amino Transferase 22 U/L (14-36); Bilirubin,Total 0.5 mg/dL (0.2-1.3); Blood Urea Nitrogen 8 mg/dL (8-21); Calcium 8.9 mg/dL (8.9-10.7); Carbon Dioxide 20 mmol/L (22-30); Chloride 108 mmol/L (98-107); Estimated CRCL calculation 101 ml/min; Estimated Glomerular Filt Rate > 60; Glucose 92 mg/dL (65-110); Potassium 3.9 mmol/L (3.4-5.0); Sodium 135 mmol/L (134-143); Total Protein 7.2 g/dL (6.3-8.6)
[2025-02-07 12:45] LABS: BEDSIDEPREGUCG Negative (Negative)
--- OUTSIDE RECORDS SUMMARY | 2025-02-07 12:50 | XMS_ITS | Encounter Summary ---
Author Organization [facility] Address [address] [place] [address] Care Team Providers Care Credit Officer Name Role Phone Araseli Galindo MD Primary Care Provider [phone] Myra Costello Primary Care Provider [phone] Mari Foley MD Primary Care Provider [phone] Unknown, Provider Primary Care Provider Unavaila ble Encounter Details Date Type Department Care Team (Late st Contact Info) Description 03/08/2014 Telephone [facility] Orthoped[facility] [address] [place] [id number] Noemi Serrano LCSW Social History Tobacco Use Types Packs/Day Years Used Date Smoking Tobacco: Never Assessed Comments Unknown Sex and Gender Information Value Date Recorded Sex Assigned at Not on file Legal Sex Female 5:44 AM [employer] Gender Identity Not on file Sexual Orientation Not on file documented as of this encounter Plan of Treatment Not on file documented as of this encounter Visit Diagnoses Not on filedocumented in this encounter Care Teams Credit Officer Relationship Specialty Start Date End Date Araseli Galindo MD PCP - General Pediatrics 10/06/11 06/01/18 Myra Costello APRN-FASHION [employer]OR [employer] [address] [place] [address] PCP - General Allergy and Immunology 06/02/18 1 Mari Foley MD [address] [place] [address] PCP - General Pediatrics 12/22/20 01/05/22 Unknown, Provider PCP - General 11/02/23 documented as of this encounter
--- OUTSIDE RECORDS SUMMARY | 2025-02-07 12:50 | XMS_ITS | Clinical Summary ---
Author Organization [facility] Address [address] [place] [address] Care Team Providers Care Product/Device Technologist Name Role Phone Unknown, Provider Primary Care Provider Unavaila ble Source Comments [facility],non-owned Affiliates and Associated Physician Practices is amultiple site organization consisting of ambulatory clinics and hospital sitesin [place], [place], [place] and [place]. This disclosure is being madepursuant to the Care Everywhere program and may not contain all information available regarding this patient. Last updated 17.[facility] Allergies Active Allergy Reactions Criticality Noted Date [...] 01/27 Assessment & Plan (01/28/2020 9:00 AM STUDIO ASSOCIATE): ASSESSMENT: doing well PLAN: arch supports Iliotibial band syndrome of right side 0 Assessment & Plan (01/28/2020 9:01 AM STUDIO ASSOCIATE): PLAN: physical therapy History of bilateral femoral [...] needed Assessment & Plan (01/28/2020 8:59 AM STUDIO ASSOCIATE): ASSESSMENT: doing well PLAN: observation Warts 11/19/2011 [...] 12/12/2024 10:42 AM CDT Emergency ER at [facility] [address] [place] [address] Discharge Disposition: Left Against Medical Advice/Discontinued Care 11/29/2024 Telephone [facility] PHYS STANDARD [address] [place] [address] Devante Portillo MD Hospital Admission 11/28/2024 10:00 AM CDT - 11/28/2024 11:10 AM CDT Emergency [facility] EMERGENCY [facility]PARTMENT [address] [place] [id number] Carlin Kevin, at early stage (HCC) Discharge Disposition: Home or Self Care 11/28/2024 Travel from Last 3 Months Immunizations Immunization Administration Dates Next Due DTAP HIB IPV 03/12/2010 DTaP VACCINE IM (6wk-6yrs) 08/26/2006,,2005,05/12 HEP A PEDS 2 DOSE 04/03/2007,06/13/2006 HEP B VACCINE, PED/ADOL 2005,06/15,2005,03/15 HIB VACCINE 2006, 6,2005,05/12 HIB-PRP-T 4 DOSE 2006,2005 Human Papilloma Virus Nineva lent Vaccine 05/09/2017,01/04/2017,11/02/2016 INFLUENZA A [id number] VACCINE 02/18/2009 INFLUENZA VACCINE 11/16/2012, 2,03/12/2010,02/18,03/18/2008,01/22/2008,04/03/2007 ,05/04/2006,2006 [...] on file Legal Sex Female 5:44 AM STUDIO ASSOCIATE Gender Identity Not on file Sexual [...] Required) Completed Medical Devices Explanted Type Area Thread Reeler Device Identifier Shelf Expiration Date Model / Serial / Lot Pin Hlf 35mm 5mm Jtx Lng Ti Ntrd Extfix Implanted:Qty: 2 Explanted:Qty: 2 on 03/15/2017 at [facility] [employer] [id number] / / Pin Hlf 40mm 5mm Jtx Lng Ti Ntrd Extfix Explanted:Qty: 1 on 03/15/2017 at [facility] [employer] [id number] / / Gw Orth 3.2mm Thrd Pedinail Explanted:Qty: 2 on 03/15/2017 by Sudhir Marie MD at [facility] [employer] 001 / / Nail 9mm 34cm Im Fem Lt Pedinail Ped Implanted:Qty: 1 on 03/15/2017 by Sudhir Marie MD at [facility] Explanted:Qty: 1 on 09/22/2017 at [facility] Left: [employer] -094 / / Nail 9mm 34cm Im Fem Rt Pedinail Ped Implanted:Qty: 1 on 03/15/2017 by Sudhir Marie MD at [facility] Explanted:Qty: 1 on 09/22/2017 at [facility] Right: Leg [employer] -044 / / Screw 4.5mm 50mm Fem Lck Pedinail Bone Implanted:Qty: 2 on 03/15/2017 by Sudhir Marie MD at [facility] Explanted:Qty: 2 on 09/22/2017 at [facility] [employer] 3050 / / Screw 4.5mm 28mm Fem Lck Pedinail Bone Implanted:Qty: 1 on 03/15/2017 by Sudhir Marie MD at [facility] Explanted:Qty: 1 on 09/22/2017 at [facility] [employer] 3028 / / Screw 4.5mm 30mm Fem Lck Pedinail Bone Implanted:Qty: 1 on 03/15/2017 by Sudhir Marie MD at [facility] Explanted:Qty: 1 on 09/22/2017 at [facility] [employer] [id number] / / Procedures Procedure Name Priority Date/Time Associated Diagnosis Comments HCG BETA BLOOD QUANTITATIVE STAT 11/28/2024 10:15 AM CDT from Last 3 Months Results * HCG BETA BLOOD QUANTITATIVE (11/28/2024 10:15 AM CDT) Beta-hCG Total Quantitative 1,896 mIU/mL 11/28/2024 10:52 AM CDT [facility] Comment: HCG Numeric Result Interpretation: [...] PA-C LAB - CHEMISTRY ORDERABLES Final Result Performing Organization Address [facility]/State/[facility] Co de Phone Number [facility] [address] [place] [phone], [facility] [phone] from Last 3 Months Insurance [facility] Advance Directives * Full Code (Latest Code Status on File) Date Activated Date Inactivated Comments 03/15/2017 1:14 PM 03/16/2017 5:56 PM Care Teams Product/Device Technologist Relationship Specialty Start Date End Date Unknown, Provider PCP - General 11/02/23
[2025-02-07 12:59] LABS: Add Urine Microscopic? YES; Appearance Urine Turbid (Clear); Glucose Urine UA Negative (Negative); Leukocyte Esterase Ur Trace LEU/UL (Negative); Nitrate Urine Negative (Negative); Specific Grav Ur 1.014 (1.001-1.035)
[2025-02-07 13:28] LABS: Cannabinoid Screen Urine Positive (Negative)
--- NOTE | 2025-02-07 13:34 | ED_ITS ---
HPI - Seizure General Chief Complaint: Seizure Stated Complaint: seizure this AM, noncompliant with meds Time Seen by Provider: 02/07/25 10:42 History of Present Illness HPI Narrative: Patient is a 19-year-old female who presents ER after having a seizure at home. Has history of seizure and it is reported that she is noncompliant with her medication. Currently orient x1. Patient does have evidence of tongue biting. Related Data Allergies Allergy/AdvReac Type Severity Reaction Status Date / Time amoxicillin Allergy Unknown yeast Verified 02/07/25 11:53 infection clavulanic acid Allergy Unknown yeast Verified 02/07/25 11:53 infection Review of Systems 2 Review of Systems: ROS unobtainable: Yes unobtainable due to medical condition PMFSH Past Medical History Medical History Seizure disorder Seizure Vaginal discharge Surveillance for Depo-Provera contraception Initiation of Depo Provera No significant past medical history Surgical History Surgical History No significant past surgical history Social History Social History Smoking status: Never smoker Alcohol intake: never Substance use: never Substance use type: does not use Lack of Transportation: No Lack of Food: Never True Current Housing: I Have Housing Concerned About Future Housing: No Difficulty Paying Gas/Electric Bills: No Difficulty Paying for Meds: No Currently Unemployed: No Education: High School Diploma/GED Difficulty w/ Childcare or Family Care: No Living arrangements: with family Occupation/Education: student 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 HEAD: Normocephalic, atraumatic. EYES: PERRL and EOMI. ENT: Mucous membranes moist. Tongue abrasions bilaiterally CHEST: Clear to auscultation. No respiratory distress. HEART: Regular rate and rhythm. Normal peripheral pulses. EXTREMITIES: Normal range of motion. No edema. SKIN: Warm, dry, no rash. NEURO: Alert and oriented x2. PSYCH: Normal mood and affect. Course Course Emergency Course: Patient is now alert orient x3. She reports she has medication that she can take at home. Last dose was today but she did not take any yesterday. She admits to poor compliance. Discussed not operating motor vehicles. Discharge home. Vital Signs Vital signs: Vital Signs Temperature 98 F 02/07/25 10:30 Pulse Rate 76 02/07/25 10:30 Respiratory Rate 19 02/07/25 10:30 Blood Pressure 132/82 02/07/25 10:30 Pulse Oximetry 99 02/07/25 10:30 Oxygen Delivery Room Air 02/07/25 10:30 Temperature 98 F 02/07/25 10:30 Pulse Rate 61 02/07/25 11:52 Respiratory Rate 17 02/07/25 11:52 Blood Pressure 122/74 02/07/25 11:52 Pulse Oximetry 99 02/07/25 11:52 Oxygen Delivery Room Air 02/07/25 10:47 MDM - Seizure Lab Data 02/07/25 11:51 02/07/25 11:51 Labs: Lab Results 02/07/25 02/07/25 02/07/25 Range/Units 11:51 12:39 12:43 WBC 16.2 H (4.5-10.0) K/mm3 RBC 4.24 (4.2-5.4) M/mm3 Hgb 13.0 (12.0-15.0) g/dL Hct 39.0 (37.0-47.0) % MCV 92.0 (80-100) fl MCH 30.7 (26-34) pg MCHC 33.3 (32-36) g/dl RDW 13.2 (11.5-14.5) % Plt Count 301 (150-375) k/mm3 MPV 9.6 (7.4-10.4) fl Immature Gran % (Auto) 0.4 (0-0.5) % Neut % (Auto) 85.6 H (45.5-73.1) % Lymph % (Auto) 7.3 L (18.3-44.2) % [place] % (Auto) 6.4 (2.6-8.5) % Eos % (Auto) 0.1 (0-4.4) % Baso % (Auto) 0.2 (0.2-1.2) % Lymph # (Auto) 1.18 (0.9-3.2) K/mm3 [place] # (Auto) 1.0 H (0.1-0.6) K/mm3 Eos # (Auto) 0.0 (0-0.3) K/mm3 Baso # (Auto) 0.0 (0.0-0.1) K/mm3 Abs Immat Gran (auto) 0.07 H (0.00-0.031) K/mm3 Absolute Neuts (auto) 13.8 H (1.3-6.7) K/mm3 Absolute Nucleated RBC 0.000 (0.0-0.012) K/mm3 Nucleated RBC % 0.0 (0.0-0.2) % Sodium 135 (134-143) mmol/L Potassium 3.9 (3.4-5.0) mmol/L Chloride 108 H (98-107) mmol/L Carbon Dioxide 20 L (22-30) mmol/L Anion Gap 7 (4-12) mmol/L BUN 8 (8-21) mg/dL Creatinine 0.63 L (0.7-1.0) mg/dL Estim Creat Clear Calc 101 ml/min Estimated GFR > 60 (59 - ) Glucose 92 (65-110) mg/dL Calcium 8.9 (8.9-10.7) mg/dL Total Bilirubin 0.5 (0.2-1.3) mg/dL AST 22 (14-36) U/L ALT 13 (6-35) U/L Alkaline Phosphatase 96 (45-116) U/L Total Protein 7.2 (6.3-8.6) g/dL Albumin 4.1 (3.7-5.6) g/dL Urine Color Yellow (Yellow) Urine Appearance Turbid H (Clear) Urine pH 5.0 (5.0-9.0) Ur Specific [place] 1.014 (1.001-1.035) Urine Protein Trace (Negative) mg/dL Urine Glucose (UA) Negative (Negative) mg/dL Urine Ketones Negative (Negative) mg/dL Ur Blood (Man) Trace (Negative) Urine Nitrate Negative (Negative) Urine Bilirubin Negative (Negative) Urine Urobilinogen 0.2 (<2.0) mg/dL Leukocyte Esterase Rfl Trace H (Negative) MANA/UL Urine RBC 0-2 (0-2) /hpf Urine WBC 6-10 H (0-3) /hpf Ur Squamous Epith Cells Moderate (Few) /hpf Uric Acid Crystals Present H (None) /hpf Urine Bacteria 1+ H /hpf Urine Casts 3-5 POC Urine HCG, Qual Negative (Negative) Urine Opiates Screen Pending Urine Methadone Screen Negative (Negative) Ur Barbiturates Screen Negative (Negative) Ur Phencyclidine Scrn Negative (Negative) Ur Amphetamine Screen Negative (Negative) U Benzodiazepines Scrn Negative (Negative) Urine Cocaine Screen Negative (Negative) U Cannabinoids Screen Positive A (Negative) Ethyl Alcohol < 10 (<10) mg/dL Imaging Data Radiologist's impression: ITS Impressions Chest X-Ray 02/07/25 11:45 IMPRESSION: No acute findings. Discharge Plan Discharge Clinical Impression: Seizure, UTI (urinary tract infection) Patient Disposition: Home Condition: Stable Instructions: Urinary Tract Infection in Women (ED), Recurrent Seizures in Adults (ED) Additional Instructions: You had a breakthrough seizure from not taking her medication. Take her Keppra twice a day to prevent having a seizure. Your not to operate heavy machinery such as a car until your 6 months seizure-free. Additionally you have a mild urinary tract infection and will be prescribed antibiotics. Patient Language: Kuwaiti Prescriptions: New nitrofurantoin monohyd/m-cryst [Macrobid] 100 mg capsule 100 mg PO Q12H 5 Days Qty: 10 0RF Rx Instructions: must administer with a meal/food No Action levetiracetam [Keppra XR] 750 mg tablet extended release 24 hr 1,500 mg PO DAILY Qty: 60 5RF Rx Instructions: start with 1 tablet at bedtime for 1 week and then 2 tablets to continue ibuprofen 400 mg tablet 400 mg PO Q6H PRN (Reason: fever or pain) Qty: 30 0RF ondansetron 4 mg tablet,disintegrating 4 mg PO Q8H PRN (Reason: nausea and vomiting) Qty: 14 0RF Follow-up/Referrals: Em Rivera RN [Registered Nurse, Nursing] - 1 Week UNKNOWN,DOCTOR [Primary Care Provider]
[2025-02-07 13:37] VITALS: BP 105/65; PULSE 65; RESP 15; O2SAT 100
[2025-02-07 13:54] VITALS: BP 107/75; PULSE 84; RESP 15; O2SAT 100
== END 2025-02-07 13:55 | disposition home or self-care (01) ==
PROVIDERS: Emergency Provider Emergency Medicine
DX: G40.909 Epilepsy, unspecified, not intractable, without status epilepticus (principal); N39.0 Urinary tract infection, site not specified; Z91.148 Patient's other noncompliance with medication regimen for other reason
CPT/HCPCS: 36415; 71046; 80053; 80307; 81001; 81025; 82077; 85025; 99284